=== PATIENT | male | born 1930 | race Hispanic/Latino ===

== ENCOUNTER 2017-09-11 16:03 | Outpatient (CLI) | payer MEDICARE, OTHER ==
--- NOTE | 2017-09-18 15:40 | Magnetic Resonance Report ---
MR scan of the cranium was performed without contrast. Pulse sequences included: 1. T1 weighted sagittal and axial images without contrast 2. T2 weighted axial and coronal images 3. FLAIR axial images 4. Diffusion-weighted axial images 5. Apparent diffusion coefficient images Views of the posterior fossa showed a normal craniocervical junction. Cerebellar pontine angles were normal with normal seventh-eighth nerve complexes. Brainstem and cerebellum were normal. The ventricular system showed no dilatation or distortion. 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 There was atrophy in the frontal and temporal regions bilaterally. Hippocampal regions were normal. Occasional small areas of increased signal were seen consistent with mild araiosis. Sinuses showed increased signal in the floors of both maxillary sinuses. Flow voids in the [place], orbits, pituitary and basal ganglia were normal. Impression: Abnormal MR scan of the cranium without contrast. a. 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 maxillary sinusitis r/o fronto temporal dementia
== END 2017-09-11 16:04 | disposition home or self-care (01) ==
LOC: MRI 16:03
PROVIDERS: ATTEND Specialist
DX: G31.01 Pick's disease (principal); J32.0 Chronic maxillary sinusitis
CPT/HCPCS: 70551